=== PATIENT | female | born 1960 | race African-American/Black ===

== ENCOUNTER 2017-07-19 14:56 | Emergency (ER) | payer MEDICARE, MEDICAID | END 2017-07-19 14:57 | disposition home or self-care (01) | LOC: ERS 14:56 | DX: K08.89 Other specified disorders of teeth and supporting structures (principal); E78.5 Hyperlipidemia, unspecified; I10 Essential (primary) hypertension; J45.909 Unspecified asthma, uncomplicated; F32.9 Major depressive disorder, single episode, unspecified | CPT/HCPCS: 99282 ==

== ENCOUNTER 2018-08-23 14:03 | Outpatient (CLI) | payer MEDICARE, MEDICAID | END 2018-08-23 14:04 | disposition home or self-care (01) | LOC: BICMAMMO 14:03 | PROVIDERS: ATTEND Family Medicine | DX: Z12.31 Encounter for screening mammogram for malignant neoplasm of breast (principal); R92.1 Mammographic calcification found on diagnostic imaging of breast | CPT/HCPCS: 77063; 77067 ==

== ENCOUNTER 2019-02-28 13:49 | Outpatient (CLI) | payer MEDICARE, MEDICAID ==
--- NOTE | 2019-02-28 16:16 | MRI ---
MRI lumbar spine without contrast: 02/28/2019 HISTORY: Chronic back pain, bilateral radiculopathy COMPARISON: 06/20/2015 Technique: Multiplanar multisequence MR imaging of the lumbar spine without contrast FINDINGS: On the basis of 5 lumbar type vertebral bodies, the conus medullaris terminates at L1-2.. T12-L1: Mild bilateral facet hypertrophy and disc space narrowing. No significant central canal or ne ural foraminal stenosis. L1-2: Mild bilateral facet hypertrophy. Disc desiccation noted. Mild left neural foraminal stenosis. L2-3: Disc space narrowing and disc desiccation. Mild bilateral facet hypertrophy. Mild bilateral hui ral foraminal stenosis. L3-4: There is disc space narrowing and disc desiccation with mild disc bulge. No significant central canal stenosis. Bilateral facet hypertrophy with mild bilateral neural foraminal stenosis, left greater than right. L4-5: There is disc space narrowing and disc desiccation. There is a small left paracentral disc prot rusion with moderate left lateral recess stenosis this is less conspicuous than on the prior examination. There is mild bilateral facet hypertrophy and mild bilateral neural foraminal stenosis. L5-S1: Bilateral facet hypertrophy, left greater than right, with moderate/severe bilateral neural fo raminal stenosis, slightly worsened when compared to the prior exam. There is disc space narrowing and disc desiccation. There is a disc protrusion in the left paracentral region with significant stab le left lateral recess stenosis. Visualized retroperitoneal structures demonstrate no acute findings. The sagittal STIR imaging demonstrates no focal area of osseous marrow edema. Impression: Multilevel lumbar spine degenerative change as described above. Transcribed Date/Time: 02/28/2019 4:26 PM
== END 2019-02-28 13:50 | disposition home or self-care (01) ==
LOC: BICMRI 13:49
PROVIDERS: ATTEND Family Medicine
DX: M54.5 Low back pain (principal); G89.29 Other chronic pain; M47.816 Spondylosis without myelopathy or radiculopathy, lumbar region
CPT/HCPCS: 72148

== ENCOUNTER 2019-07-04 14:07 | Emergency (ER) | payer MEDICARE, MEDICAID ==
[2019-07-04] MEDS ORDERED: Ibuprofen 200 MG TAB ONE (15:50)
[2019-07-04] MEDS ORDERED: Cyclobenzaprine 10 MG TAB ONE (16:03)
--- NOTE | 2019-07-04 16:49 | RAD ---
EXAM: XR Knee Lt 4 View STANDARD PROVIDED CLINICAL HISTORY: Pain FINDINGS: There is no evidence for fracture or other acute osseous abnormality. Alignment appears anatomic. Mimi nt spaces appear preserved. IMPRESSION: No evidence for an acute osseous abnormality. If there is persistent clinical concern, conservative m anagement and follow-up imaging advised.
--- NOTE | 2019-07-04 16:50 | RAD ---
EXAM: XR Knee Rt 4 View STANDARD PROVIDED CLINICAL HISTORY: Pain FINDINGS: There is no evidence for fracture or other acute osseous abnormality. Alignment appears anatomic. Mimi nt spaces appear preserved. Low-grade chondroid lesion is demonstrated involving the central proximal tibial metaphyseal region. Remote appearing ununited fibular styloid fracture. IMPRESSION: No evidence for an acute osseous abnormality. If there is persistent clinical concern, conservative m anagement and follow-up imaging advised.
--- NOTE | 2019-07-04 16:52 | RAD ---
EXAM: XR Elbow Lt 4 View STANDARD PROVIDED CLINICAL HISTORY: Pain FINDINGS: Linear lucency overlies the capitellum on the frontal and oblique view, possibly artifactual. Alignme nt appears anatomic. Joint spaces appear preserved. No evidence for elbow joint capsular distention. IMPRESSION: Possibly artifactual linear lucency overlies the capitellum versus nondisplaced fracture. Consider CT as indicated.
== END 2019-07-04 17:45 | disposition home or self-care (01) ==
LOC: ERS 14:07
DX: S39.012A Strain of muscle, fascia and tendon of lower back, initial encounter (principal); S80.02XA Contusion of left knee, initial encounter; S80.01XA Contusion of right knee, initial encounter; S50.02XA Contusion of left elbow, initial encounter; E78.5 Hyperlipidemia, unspecified; I10 Essential (primary) hypertension; J45.909 Unspecified asthma, uncomplicated; F32.9 Major depressive disorder, single episode, unspecified; W18.30XA Fall on same level, unspecified, initial encounter
CPT/HCPCS: 29105; 94640; J7620

== ENCOUNTER 2020-07-22 11:52 | Emergency (ER) | payer MEDICARE, MEDICAID ==
[2020-07-22 12:26] LABS: #Eosinphils 0.2 thou/uL (0.0-0.7); #Lymphocytes 2.2 thou/uL (1.20-3.40); #Monocytes 0.3 thou/uL (0.11-0.59); #Neutrophils 3.7 thou/uL (1.40-6.50); %Basophils 0.7 % (0.0-1.0); %Eosinophils 3.3 % (0.0-10.0); %Lymphocytes 33.4 % (21.0-51.0); %Monocytes 5.1 % (0.0-10.0); %Neutrophils 57.6 % (42.0-75.0); Hemoglobin 9.7 g/dL (12.0-16.0); Mean Corpuscular HGB CONC 30.9 g/dL (32.0-36.0); Mean Corpuscular Hemoglobin 23.2 pg (27.0-31.0); Mean Corpuscular Volume 75.1 fL (78.0-98.0); Mean Platelet Volume 10.3 fL (7.4-10.4); Platelet Count 272 thou/uL (130-400); RBC Distribution Width 17.7 % (11.5-14.5); Red Blood Cell (RBC) Count 4.16 mill/uL (4.20-5.40); White Blood Cell (WBC) Count 6.4 thou/uL (4.8-10.8)
[2020-07-22 12:48] LABS: ALT (SGPT) 15 U/L (8-55); AST (SGOT) 14 U/L (5-34); Albumin 3.9 g/dL (3.5-5.0); Alkaline Phosphatase 93 U/L (40-110); Anion Gap 14 mmol/L (10-20); BUN (Urea Nitrogen) 14 mg/dL (9.8-20.1); Bilirubin, Total 0.4 mg/dL (0.2-1.2); CK (CPK) 110 U/L (29-168); Calc. Creatinine Clearance 0 mL/min (70-130); Calcium 9.2 mg/dL (7.8-10.44); Carbon Dioxide 27 mmol/L (22-29); Chloride 103 mmol/L (98-107); Estimated GFR-MDRD 70; Globulin 3.4 g/dL (2.4-3.5); Glucose 104 mg/dL (70-105); Lipase 13 U/L (8-78); Potassium 3.8 mmol/L (3.5-5.1); Protein, Total 7.3 g/dL (6.0-8.3); Sodium 140 mmol/L (136-145)
[2020-07-22] MEDS ORDERED: HYDROcodone/Acetaminophen 5/325 mg Tablet ONE (14:32)
--- NOTE | 2020-07-22 15:17 | ULT ---
EXAM: Right lower extremity venous Doppler HISTORY: Left leg swelling/dyspnea on exertion. FINDINGS: Grayscale, color-flow, Doppler evaluation, spectral analysis of the right lower extremity venous stru ctures is performed with 2-D imaging. The right common femoral, superficial femoral, popliteal, posterior tibial, proximal greater saphenous and profunda femoral veins are imaged. There is normal luminal compressibility, flow, and augmentation in the visualized deep venous structu res of the right lower extremity. There is subcutaneous edema involving the right lower extremity. IMPRESSION: 1. No evidence of a deep vein thrombosis in the visualized deep venous structures right lower extremi ty. 2. Right lower extremity edema.
[2020-07-22] MEDS ORDERED: Furosemide 40 MG TAB ONE (16:14)
--- NOTE | 2020-07-23 07:27 | RAD ---
EXAM: Single view of the chest HISTORY: Leg swelling and dyspnea COMPARISON: 06/24/2012 FINDINGS: Single view of the chest shows an enlarged but stable cardiomediastinal silhouette. There i s no evidence of consolidation, mass, or pleural effusion. Degenerative changes are seen in the spine. IMPRESSION: No evidence of acute cardiopulmonary disease
== END 2020-07-22 16:25 | disposition home or self-care (01) ==
LOC: ERS 11:52
DX: R60.0 Localized edema (principal); M79.604 Pain in right leg; M79.605 Pain in left leg; I10 Essential (primary) hypertension; E78.5 Hyperlipidemia, unspecified; J45.909 Unspecified asthma, uncomplicated; F32.9 Major depressive disorder, single episode, unspecified; Z87.891 Personal history of nicotine dependence; Z79.899 Other long term (current) drug therapy; Z79.84 Long term (current) use of oral hypoglycemic drugs; Z79.82 Long term (current) use of aspirin
CPT/HCPCS: 36415; 71045; 80053; 82550; 83690; 83880; 84484; 85025; 93005

== ENCOUNTER 2020-07-30 20:10 | Emergency (ER) | payer MEDICARE, MEDICAID ==
[2020-07-30] MEDS ORDERED: Ketorolac Tromethamine 30 MG/ML VIAL ONE (20:39)
[2020-07-30] MEDS ORDERED: traMADol HCl 50 MG TAB ONE (20:39)
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
== END 2020-07-30 22:14 | disposition home or self-care (01) ==
LOC: ERS 20:10
DX: S16.1XXA Strain of muscle, fascia and tendon at neck level, initial encounter (principal); S46.912A Strain of unspecified muscle, fascia and tendon at shoulder and upper arm level, left arm, initial encounter; M25.562 Pain in left knee; E78.5 Hyperlipidemia, unspecified; I10 Essential (primary) hypertension; J45.909 Unspecified asthma, uncomplicated; F32.9 Major depressive disorder, single episode, unspecified; Z87.891 Personal history of nicotine dependence; Z79.84 Long term (current) use of oral hypoglycemic drugs; Z79.51 Long term (current) use of inhaled steroids; Z79.899 Other long term (current) drug therapy; V43.62XA Car passenger injured in collision with other type car in traffic accident, initial encounter
CPT/HCPCS: 72125; 96372; J1885

== ENCOUNTER 2020-10-08 14:20 | Emergency (ER) | payer MEDICARE, MEDICAID ==
[2020-10-08 15:15] LABS: #Basophils 0.1 thou/uL (0.0-0.2); #Lymphocytes 1.7 thou/uL (1.20-3.40); #Monocytes 0.4 thou/uL (0.11-0.59); #Neutrophils 2.1 thou/uL (1.40-6.50); %Basophils 1.7 % (0.0-1.0); %Eosinophils 0.5 % (0.0-10.0); %Lymphocytes 40.3 % (21.0-51.0); %Monocytes 8.9 % (0.0-10.0); %Neutrophils 48.6 % (42.0-75.0)
[2020-10-08 15:16] LABS: Hemoglobin 8.8 g/dL (12.0-16.0); Mean Corpuscular HGB CONC 30.7 g/dL (32.0-36.0); Mean Corpuscular Hemoglobin 22.1 pg (27.0-31.0); Mean Corpuscular Volume 72.2 fL (78.0-98.0); Mean Platelet Volume 11.2 fL (7.4-10.4); Platelet Count 235 thou/uL (130-400); RBC Distribution Width 18.8 % (11.5-14.5); Red Blood Cell (RBC) Count 3.99 mill/uL (4.20-5.40); White Blood Cell (WBC) Count 4.3 thou/uL (4.8-10.8)
[2020-10-08 15:34] LABS: ALT (SGPT) 15 U/L (8-55); AST (SGOT) 20 U/L (5-34); Alkaline Phosphatase 105 U/L (40-110); Anion Gap 13 mmol/L (10-20); BUN (Urea Nitrogen) 18 mg/dL (9.8-20.1); Bilirubin, Total 0.2 mg/dL (0.2-1.2); CK (CPK) 113 U/L (29-168); Calc. Creatinine Clearance 0 mL/min (70-130); Carbon Dioxide 30 mmol/L (22-29); Chloride 100 mmol/L (98-107); Glucose 135 mg/dL (70-105); Potassium 3.9 mmol/L (3.5-5.1); Sodium 139 mmol/L (136-145)
[2020-10-08 15:36] LABS: Anisocytosis SLIGHT = 6-15 cells (100X) (0-5/hpf); Hypochromia SLIGHT = 6-15 cells (100X) (0-5/hpf); Large Platelets SLIGHT; MDiff Complete? YES; Microcytosis SLIGHT = 6-15 cells (100X) (0-5/hpf); Platelet Morphology Comment Appears Adequate; Polychromasia SLIGHT = 2-3 cells (100X) (0-2/hpf); Stomatocytes SLIGHT = 2-5 cells (100X) (0-1/hpf); Target Cells SLIGHT = 2-5 cells (100X) (0-1/hpf); Tear Drops SLIGHT = 2-5 cells (100X) (0-1/hpf)
--- NOTE | 2020-10-08 15:37 | RAD ---
EXAM: Portable chest PROVIDED CLINICAL HISTORY: Dizziness, cough COMPARISON: 07/22/2020 FINDINGS: Cardiac and mediastinal silhouette is within normal limits. No focal consolidation, pleural fluid or pneumothorax evident. IMPRESSION: No evidence for an acute cardiopulmonary process.
[2020-10-08] MEDS ORDERED: Cefepime 2 GM VIAL ONE (16:03)
[2020-10-08] MEDS ORDERED: Vancomycin 1 GM/200 ML BAG ONE (16:03)
== END 2020-10-08 17:50 | disposition home or self-care (01) ==
LOC: ERS 14:20
DX: R55 Syncope and collapse (principal); E78.5 Hyperlipidemia, unspecified; I10 Essential (primary) hypertension; Z87.891 Personal history of nicotine dependence; Z79.899 Other long term (current) drug therapy
CPT/HCPCS: 71045; 80053; 82550; 83605; 84484; 85025; 87040; 93005; 96365; 96367; J0692; J3370

== ENCOUNTER 2021-03-07 14:54 | Outpatient (CLI) | payer MEDICARE ==
[2021-03-07 16:00] LABS: ALT (SGPT) 12 U/L (8-55); AST (SGOT) 12 U/L (5-34); Albumin 4.1 g/dL (3.5-5.0); Alkaline Phosphatase 94 U/L (40-110); Anion Gap 12 mmol/L (10-20); BUN (Urea Nitrogen) 15 mg/dL (9.8-20.1); Bilirubin, Total 0.4 mg/dL (0.2-1.2); Calc. Creatinine Clearance 0 mL/min (70-130); Calcium 9.6 mg/dL (7.8-10.44); Carbon Dioxide 29 mmol/L (22-29); Chloride 102 mmol/L (98-107); Globulin 3.2 g/dL (2.4-3.5); Glucose 101 mg/dL (70-105); Potassium 3.6 mmol/L (3.5-5.1); Protein, Total 7.3 g/dL (6.0-8.3); Sodium 139 mmol/L (136-145)
[2021-03-07 16:16] LABS: #Eosinphils 0.1 10x3/uL (0.0-0.5); #Monocytes 0.4 10x3/uL (0.0-1.1); #Neutrophils 3.5 10x3/uL (1.5-8.4); %Basophils 0.6 % (0.0-2.0); %Eosinophils 1.6 % (0.0-6.0); %Lymphocytes 40.2 % (18.0-47.0); %Neutrophils 51.5 % (40.0-75.0); Hemoglobin 7.6 g/dL (12.0-15.5); Mean Corpuscular HGB CONC 28.3 g/dL (32.0-36.0); Mean Corpuscular Hemoglobin 18.5 pg (27.0-33.0); Mean Corpuscular Volume 65.5 fl (81.6-98.3); Mean Platelet Volume 10.8 fl (7.4-10.4); Platelet Count 339 10x3/uL (150-450); RBC Distribution Width 20.8 % (11.5-14.5); Red Blood Cell (RBC) Count 4.11 10x6/uL (3.90-5.03); White Blood Cell (WBC) Count 6.7 10x3/uL (3.5-10.5)
[2021-03-08 00:20] LABS: SARS-CoV-2 PCR by NAA Not Detected (NotDetected)
== END 2021-03-07 14:55 | disposition home or self-care (01) ==
LOC: LABBT 14:54
PROVIDERS: ATTEND Internal Medicine Cardiovascular Disease
DX: Z01.812 Encounter for preprocedural laboratory examination (principal); Z20.822 Contact with and (suspected) exposure to COVID-19
CPT/HCPCS: 80053; 85025; U0003; U0005

== ENCOUNTER 2021-03-19 06:51 | Inpatient (IN) | payer MEDICARE, MEDICAID ==
[2021-03-19] MEDS ORDERED: Iopamidol 370 76% 100 ML VIAL ONE (08:51)
[2021-03-19 09:01] LABS: #Basophils 0.1 thou/uL (0.0-0.2); #Eosinphils 0.2 thou/uL (0.0-0.7); #Lymphocytes 3.9 thou/uL (1.20-3.40); #Monocytes 0.4 thou/uL (0.11-0.59); #Neutrophils 6.1 thou/uL (1.40-6.50); %Basophils 0.9 % (0.0-1.0); %Eosinophils 1.5 % (0.0-10.0); %Lymphocytes 36.4 % (21.0-51.0); %Monocytes 4.1 % (0.0-10.0); Hemoglobin 8.2 g/dL (12.0-16.0); Mean Corpuscular HGB CONC 29.2 g/dL (32.0-36.0); Mean Corpuscular Hemoglobin 18.8 pg (27.0-31.0); Mean Corpuscular Volume 64.3 fL (78.0-98.0); Mean Platelet Volume 6.6 fL (7.4-10.4); Platelet Count 352 thou/uL (130-400); RBC Distribution Width 20.8 % (11.5-14.5); Red Blood Cell (RBC) Count 4.34 mill/uL (4.20-5.40); White Blood Cell (WBC) Count 10.6 thou/uL (4.8-10.8)
[2021-03-19] MEDS ORDERED: Lidocaine 1% (PF) 30 ML VIAL ONE (09:30)
[2021-03-19] MEDS ORDERED: Fentanyl 100 MCG/2 ML VIAL ONE (09:53)
[2021-03-19] MEDS ORDERED: Midazolam HCl 2 mg/2 ml Vial ONE (09:53)
[2021-03-19] MEDS ORDERED: Metoprolol Tartrate 5 MG/5 ML VIAL ONE (10:09)
[2021-03-19] MEDS ORDERED: Nitroglycerin 100MG/250ML BOT 250 ML ONE (10:15)
[2021-03-19 10:23] LABS: Hypochromia MODERATE=16-30 cells (100X) (0-5/hpf); MDiff Complete? YES; Microcytosis MODERATE=15-30 cells (100X) (0-5/hpf); Ovalocytes SLIGHT = 2-5 cells (100X) (0-1/hpf); Platelet Morphology Comment Appears Adequate; Polychromasia SLIGHT = 2-3 cells (100X) (0-2/hpf); Reflex for Review?? YES; Schistocytes SLIGHT = 2-5 cells (100X) (0-1/hpf)
[2021-03-19] MEDS ORDERED: Nitroglycerin 2% Ointment 1 INCH/1 GM Packet ONE (10:54)
[2021-03-19] MEDS: Nitroglycerin 2% Ointment 1 INCH/1 GM Packet TOP SCH ×2 (10:55→23:54)
[2021-03-19] MEDS ORDERED: Diazepam 5 MG TAB PO PRN (11:52)
[2021-03-19] MEDS ORDERED: Communication Order-Pharmacy FS ONE (11:52)
[2021-03-19] MEDS ORDERED: Acetaminophen/Codeine 30-300mg Tablet PO PRN ×2 (12:00)
[2021-03-19] MEDS ORDERED: Nitroglycerin 0.4 MG TAB (25 Tab Bottle) SL PRN (12:00)
[2021-03-19] MEDS ORDERED: Albuterol Sulfate 2.5 mg/3 ml Neb NEB PRN (12:49)
[2021-03-19] MEDS ORDERED: Cyclobenzaprine 10 MG TAB PO PRN (12:50)
[2021-03-19 13:25] LABS: Hemoglobin A1c 5.7 % (4.0-6.0)
[2021-03-19] MEDS ORDERED: traMADol HCl 50 MG TAB ONE (13:41)
[2021-03-19] MEDS: traMADol HCl 50 MG TAB PO PRN (13:44)
[2021-03-19] MEDS: Gabapentin 300 MG CAP PO SCH ×2 (15:30→21:29)
[2021-03-19] MEDS ORDERED: Cyclobenzaprine 10 MG TAB ONE (18:52)
[2021-03-19] MEDS: Mometasone 200 MCG/Formoterol 5 MCG 120 PUFF INHALER INH SCH (19:32)
[2021-03-19] MEDS: Mometasone Furoate 30 PUFF 220 MCG INH SCH (19:34)
[2021-03-19] MEDS ORDERED: Acetaminophen/Codeine 30-300mg Tablet ONE (21:23)
[2021-03-19] MEDS ORDERED: Gabapentin 300 MG CAP ONE (21:26)
[2021-03-19] MEDS: Sodium Chloride 0.9% 1,000 ML IV SCH (23:02)
[2021-03-19 23:38] VITALS: BMI 39.9
[2021-03-19] MEDS: Atorvastatin Calcium 20 MG TAB PO SCH (23:54)
[2021-03-20] MEDS: traMADol HCl 50 MG TAB PO PRN ×3 (00:01→20:49)
[2021-03-20] MEDS: Ipratropium Bromide 0.03% Nasal Inhaler 30 ml Bottle EA NARE SCH ×2 (00:15→23:44)
[2021-03-20] MEDS: Nitroglycerin 2% Ointment 1 INCH/1 GM Packet TOP SCH ×3 (05:37→20:50)
[2021-03-20] MEDS: Sodium Chloride 0.9% 1,000 ML IV SCH (07:04)
[2021-03-20] MEDS ORDERED: metFORMIN 500 MG TAB PO SCH (08:00)
[2021-03-20] MEDS: Mometasone 200 MCG/Formoterol 5 MCG 120 PUFF INHALER INH SCH ×2 (08:14→19:13)
[2021-03-20] MEDS ORDERED: Multivit, Therapeutic 1 TAB PO SCH (09:00)
[2021-03-20] MEDS ORDERED: Azelastine 137 MCG/Spray 30 ML NS SCH (09:00)
[2021-03-20] MEDS ORDERED: Aspirin 81 mg Enteric Coated Tablet PO SCH (09:00)
[2021-03-20] MEDS ORDERED: Calcium Carbonate 600 MG + Vit D TAB PO SCH (09:00)
[2021-03-20] MEDS ORDERED: Fluconazole 100 MG TAB PO SCH (09:00)
[2021-03-20] MEDS ORDERED: Potassium Chloride 10 MEQ TAB PO SCH (09:00)
[2021-03-20] MEDS ORDERED: Estradiol 1 MG TAB PO SCH (09:00)
[2021-03-20] MEDS ORDERED: Ascorbic Acid 500 mg Chewable Tablet PO SCH (09:00)
[2021-03-20] MEDS ORDERED: Loratadine/Pseudoephedrine 10/240 mg Tablet PO SCH (09:00)
[2021-03-20] MEDS ORDERED: DULoxetine 60 MG CAP PO SCH (09:00)
[2021-03-20] MEDS: Gabapentin 300 MG CAP PO SCH ×3 (09:39→20:50)
[2021-03-20] MEDS: Atorvastatin Calcium 20 MG TAB PO SCH (20:50)
[2021-03-20] MEDS ORDERED: Nitroglycerin 2% Ointment 1 INCH/1 GM Packet ONE (21:42)
[2021-03-21] MEDS ORDERED: Clindamycin/D5W 900 mg/50 ml Premix Bag ONE (06:12)
[2021-03-21] MEDS ORDERED: Vancomycin 1 GM/200 ML BAG ONE (06:12)
[2021-03-21] MEDS ORDERED: CABG-Vancomycin 1 GM in Premix Bag 1 BAG IVPB SCH (06:30)
[2021-03-21] MEDS ORDERED: Dexamethasone 4 mg/ml Vial ONE (06:33)
[2021-03-21] MEDS ORDERED: Albumin 5% 500 ML ONE (06:33)
[2021-03-21] MEDS ORDERED: Bupivacaine PF 0.5% 30 ML VIAL ONE (06:33)
[2021-03-21] MEDS ORDERED: EPINEPHrine 1 MG/ML AMP ONE (06:33)
[2021-03-21] MEDS: Nitroglycerin 2% Ointment 1 INCH/1 GM Packet TOP SCH (06:35)
[2021-03-21] MEDS ORDERED: Midazolam HCl 5 mg/5 ml Vial ONE (06:52)
[2021-03-21] MEDS ORDERED: Fentanyl 250 MCG/5 ML VIAL ONE (06:52)
[2021-03-21] MEDS ORDERED: Thrombin 5000 UNITS/5 ML VIAL ONE (07:07)
[2021-03-21] MEDS ORDERED: PHENYLEPHRINE-NS 100 MCG/ML 10 ML SYRINGE ONE ×2 (07:07→09:31)
[2021-03-21] MEDS ORDERED: PROPOFOL 200 MG/20 ML VIAL ONE (07:07)
[2021-03-21] MEDS ORDERED: Potassium Chloride 60 MEQ/30 ML VIAL ONE (07:07)
[2021-03-21] MEDS ORDERED: Cardioplegic Soln 1,000 ML BAG ONE (07:07)
[2021-03-21] MEDS ORDERED: Aminocaproic Acid 5 GM/20 ML VIAL ONE (07:07)
[2021-03-21] MEDS ORDERED: Heparin 5,000 UNITS/ML VIAL ONE (07:07)
[2021-03-21] MEDS ORDERED: Heparin 30,000 units/30 ml VIAL ONE (07:07)
[2021-03-21] MEDS ORDERED: Calcium Chloride 1 GM/10 ML Abboject SYRINGE ONE (07:07)
[2021-03-21] MEDS ORDERED: Rocuronium Bromide 10 MG/ML (10ML VIAL) ONE (07:07)
[2021-03-21] MEDS ORDERED: Papaverine 60 MG/2 ML VIAL ONE (07:07)
[2021-03-21] MEDS ORDERED: Ondansetron PF 4 MG/2 ML Vial ONE (07:07)
[2021-03-21] MEDS ORDERED: Protamine Sulfate 250 MG/25 ML VIAL ONE (07:07)
[2021-03-21] MEDS ORDERED: Mannitol 12.5 GM/50 ML ONE (07:07)
[2021-03-21] MEDS ORDERED: Lidocaine 2% PF 100 mg/5 ml Syringe ONE (07:07)
[2021-03-21] MEDS ORDERED: Magnesium Sulfate 1 GM/2 ML VIAL ONE (07:07)
[2021-03-21] MEDS ORDERED: Sodium Bicarb 50 MEQ/50 ML Abboject 8.4% SYRINGE ONE (07:07)
[2021-03-21] MEDS ORDERED: Heparin 10,000 UNITS/1 ML VIAL 30,000 UNITS in Sodium Chloride 0.9% 1,000 ML FS SCH (07:15)
[2021-03-21] MEDS ORDERED: CABG-Clindamycin/D5W 900 MG in Premix Bag 1 BAG IVPB SCH (07:30)
[2021-03-21] MEDS ORDERED: Sodium Chloride 0.9% 10 ML ONE (07:31)
[2021-03-21] MEDS ORDERED: Rocuronium Bromide 50 MG/5 ML VIAL ONE (10:35)
[2021-03-21] MEDS: Mometasone 200 MCG/Formoterol 5 MCG 120 PUFF INHALER INH SCH (10:40)
[2021-03-21] MEDS ORDERED: Mag-Al 1200 mg/1200 mg/30 ML UDCUP PO PRN (11:30)
[2021-03-21] MEDS ORDERED: Post-Op Insulin Drip Protocol IVPB ONE (11:30)
[2021-03-21] MEDS ORDERED: Bisacodyl 5 MG TAB PO PRN (11:30)
[2021-03-21] MEDS ORDERED: Fentanyl 100 MCG/2 ML VIAL SLOW IVP PRN (11:30)
[2021-03-21] MEDS ORDERED: Magnesium 2 GM/50 ML 2 GM in Premix Bag 1 BAG IVPB SCH (11:30)
[2021-03-21] MEDS ORDERED: Promethazine HCl 25 MG/ML VIAL IM PRN (11:30)
[2021-03-21] MEDS ORDERED: Potassium Chloride 20 MEQ/100 ML PREMIX BAG IVPB PRN (11:30)
[2021-03-21] MEDS ORDERED: Guaifenesin DM 100-10/5 ML UDCUP PO PRN (11:30)
[2021-03-21] MEDS ORDERED: Ondansetron PF 4 MG/2 ML Vial IVP PRN (11:30)
[2021-03-21] MEDS ORDERED: Norepinephrine 8 MG/0.9% NS 250 ML IVPB PRN (11:30)
[2021-03-21] MEDS ORDERED: Hetastarch 6% 500 ML 500 ML IVPB PRN (11:30)
[2021-03-21] MEDS ORDERED: D5 1/2 NS w/20 mEq KCL 1,000 ML IV SCH (11:30)
[2021-03-21] MEDS ORDERED: Bisacodyl 10 MG SUPP PR PRN (11:30)
[2021-03-21] MEDS ORDERED: Nitroglycerin 50 MG/250 ML BOT 250 ML IVPB PRN (11:30)
[2021-03-21] MEDS ORDERED: niCARdipine 25 MG in Sodium Chloride 0.9% 250 ML 250 ML IVPB PRN (11:30)
[2021-03-21 11:55] LABS: Hemoglobin 9.1 g/dL (12.0-16.0); Mean Corpuscular HGB CONC 31.7 g/dL (32.0-36.0); Mean Corpuscular Hemoglobin 22.5 pg (27.0-31.0); Mean Corpuscular Volume 71.1 fL (78.0-98.0); Mean Platelet Volume 7.2 fL (7.4-10.4); Platelet Count 182 thou/uL (130-400); RBC Distribution Width 23.3 % (11.5-14.5); Red Blood Cell (RBC) Count 4.02 mill/uL (4.20-5.40); White Blood Cell (WBC) Count 21.4 thou/uL (4.8-10.8)
[2021-03-21] MEDS: Ketorolac Tromethamine 30 MG/ML VIAL IVP SCH ×3 (11:59→23:19)
[2021-03-21] MEDS ORDERED: HUMULIN R 100 UNITS in Sodium Chloride 0.9% 100 ML IVPB SCH (12:00)
[2021-03-21] MEDS ORDERED: Insulin Regular 300 UNITS/3 ML VIAL SC PRN (12:00)
[2021-03-21] MEDS ORDERED: Dextrose 50% Abboject 50 ML SYRINGE SLOW IVP PRN (12:00)
[2021-03-21] MEDS ORDERED: Lantus 1000 UNITS/10 ML VIAL SC PRN (12:00)
[2021-03-21] MEDS ORDERED: Clindamycin/D5W 900 MG in Premix Bag 1 BAG IVPB SCH (12:00)
[2021-03-21] MEDS ORDERED: Dextrose 5% in Water 1,000 ML IV PRN (12:00)
[2021-03-21 12:12] LABS: Anion Gap 11 mmol/L (10-20); BUN (Urea Nitrogen) 8 mg/dL (9.8-20.1); Calc. Creatinine Clearance 146 mL/min (70-130); Calcium 8.8 mg/dL (7.8-10.44); Carbon Dioxide 25 mmol/L (22-29); Chloride 105 mmol/L (98-107); Glucose 148 mg/dL (70-105); INR-International Normal Ratio 1.3; Potassium 4.2 mmol/L (3.5-5.1); Prothrombin Time 16.1 sec (12.0-14.7); Sodium 137 mmol/L (136-145)
[2021-03-21 12:13] LABS: PTT 43.5 sec (22.9-36.1)
[2021-03-21] MEDS: Ipratropium Bromide 0.03% Nasal Inhaler 30 ml Bottle EA NARE SCH (12:16)
[2021-03-21] MEDS: Mometasone Furoate 30 PUFF 220 MCG INH SCH (12:16)
[2021-03-21 12:20] LABS: Anisocytosis SLIGHT = 6-15 cells (100X) (0-5/hpf); Band 29 % (5-11); Eosinophils 1 % (0-10); Hypochromia MODERATE=16-30 cells (100X) (0-5/hpf); Lymphocytes 14 % (21-51); MDiff Complete? YES; Microcytosis SLIGHT = 6-15 cells (100X) (0-5/hpf); Neutrophil 56 % (42-75); Platelet Morphology Comment Appears Adequate; Polychromasia SLIGHT = 2-3 cells (100X) (0-2/hpf); Target Cells SLIGHT = 2-5 cells (100X) (0-1/hpf); Tear Drops SLIGHT = 2-5 cells (100X) (0-1/hpf)
[2021-03-21 12:23] LABS: Actual Bicarbonate (HCO3a) 25.4 mEq/L (22-28); Base Excess (BEa) 1.1 mEq/L (-2.0 to +3.0); CO2 Tension 39.1 mmHg (35.0-45.0); Calcium, Ionized (arterial) 1.23 mmol/L (1.12-1.30); Carboxyhemoglobin (COHb) 0.5 gm% (0.0-3.0); O2 Tension (PaO2), arterial 102.5 mmHg (> 80.0); pH, Arterial 7.43 (7.35-7.45)
[2021-03-21 12:27] LABS: ALV-art Gradient 205.125 mmHg (0-20); Puncture Site Arterial Line
[2021-03-21] MEDS: Clindamycin/D5W 900 MG in Premix Bag 1 BAG IVPB SCH ×3 (12:34→23:19)
[2021-03-21] MEDS: Fentanyl 100 MCG/2 ML VIAL SLOW IVP PRN ×5 (12:35→23:19)
[2021-03-21] MEDS: Vancomycin 1.5 GRAM/300 ML BAG 1.5 GM in Premix Bag 1 BAG IVPB SCH (16:42)
[2021-03-21 17:14] LABS: Hemoglobin 10.3 g/dL (12.0-16.0)
[2021-03-21 17:32] LABS: Potassium 4.7 mmol/L (3.5-5.1)
[2021-03-21] MEDS: Famotidine/PF 20 mg/2ml Vial SLOW IVP SCH (20:43)
[2021-03-22] MEDS: Fentanyl 100 MCG/2 ML VIAL SLOW IVP PRN ×2 (02:37→06:22)
[2021-03-22 04:26] LABS: Hemoglobin 9.7 g/dL (12.0-16.0); Mean Corpuscular HGB CONC 31.5 g/dL (32.0-36.0); Mean Corpuscular Hemoglobin 22.5 pg (27.0-31.0); Mean Corpuscular Volume 71.6 fL (78.0-98.0); Mean Platelet Volume 6.2 fL (7.4-10.4); Platelet Count 225 thou/uL (130-400); RBC Distribution Width 23.4 % (11.5-14.5); Red Blood Cell (RBC) Count 4.29 mill/uL (4.20-5.40); White Blood Cell (WBC) Count 13.3 thou/uL (4.8-10.8)
[2021-03-22 04:40] LABS: Anion Gap 9 mmol/L (10-20); BUN (Urea Nitrogen) 9 mg/dL (9.8-20.1); Calc. Creatinine Clearance 131 mL/min (70-130); Calcium 8.5 mg/dL (7.8-10.44); Carbon Dioxide 28 mmol/L (22-29); Chloride 105 mmol/L (98-107); Glucose 135 mg/dL (70-105); Potassium 4.8 mmol/L (3.5-5.1); Sodium 137 mmol/L (136-145)
[2021-03-22 05:57] LABS: #Lymphocytes 1.6 thou/uL (1.20-3.40); #Monocytes 0.8 thou/uL (0.11-0.59); %Eosinophils 0.1 % (0.0-10.0); %Lymphocytes 11.6 % (21.0-51.0); %Monocytes 5.6 % (0.0-10.0); %Neutrophils 82.6 % (42.0-75.0); Anisocytosis MODERATE=16-30 cells (100X) (0-5/hpf); Hypochromia MODERATE=16-30 cells (100X) (0-5/hpf); MDiff Complete? YES; Platelet Morphology Comment Appears Adequate
[2021-03-22] MEDS: Clindamycin/D5W 900 MG in Premix Bag 1 BAG IVPB SCH (06:19)
[2021-03-22] MEDS: Ketorolac Tromethamine 30 MG/ML VIAL IVP SCH ×4 (06:20→23:01)
[2021-03-22] MEDS: Vancomycin 1.5 GRAM/300 ML BAG 1.5 GM in Premix Bag 1 BAG IVPB SCH (06:21)
[2021-03-22] MEDS: Acetaminophen 325 MG TAB PO PRN (06:21)
[2021-03-22] MEDS: Famotidine/PF 20 mg/2ml Vial SLOW IVP SCH (07:33)
[2021-03-22] MEDS: Aspirin 325 MG TAB PO SCH (07:34)
[2021-03-22] MEDS: Magnesium 2 GM/50 ML 2 GM in Premix Bag 1 BAG IVPB SCH (07:34)
[2021-03-22] MEDS ORDERED: Dextrose 50% Abboject 50 ML SYRINGE SLOW IVP PRN (08:04)
[2021-03-22] MEDS ORDERED: Dextrose 5% in Water 1,000 ML IV PRN (08:04)
[2021-03-22] MEDS ORDERED: HumaLOG 300 UNITS/3 ML VIAL SC PRN (08:04)
[2021-03-22] MEDS: traMADol HCl 50 MG TAB PO PRN ×2 (10:26→18:22)
[2021-03-22] MEDS: Atorvastatin Calcium 40 MG TAB PO SCH (20:10)
[2021-03-23] MEDS: Ketorolac Tromethamine 30 MG/ML VIAL IVP SCH ×4 (05:38→23:01)
[2021-03-23] MEDS ORDERED: Non-Formulary Item 1 EACH (Albuterol Sulfate [Proair Hfa] 8.5 GM Hfa.Aer.Ad) INH PRN (09:40)
[2021-03-23] MEDS: Magnesium 2 GM/50 ML 2 GM in Premix Bag 1 BAG IVPB SCH (09:43)
[2021-03-23] MEDS: traMADol HCl 50 MG TAB PO PRN (09:44)
[2021-03-23] MEDS: Aspirin 325 MG TAB PO SCH (09:44)
[2021-03-23] MEDS ORDERED: Albuterol 200 PUFF (6.7GM INHALER) INH PRN (09:48)
[2021-03-23] MEDS ORDERED: Guaifenesin DM 100-10/5 ML UDCUP PO PRN (10:37)
[2021-03-23] MEDS ORDERED: Nitroglycerin 0.4 MG TAB (25 Tab Bottle) SL PRN (10:37)
[2021-03-23] MEDS ORDERED: diphenhydrAMINE 25 MG CAP PO PRN (10:37)
[2021-03-23] MEDS ORDERED: Zolpidem Tartrate 5 MG TAB PO PRN (10:37)
[2021-03-23] MEDS ORDERED: Bisacodyl 10 MG SUPP PR PRN (10:37)
[2021-03-23] MEDS ORDERED: Mineral Oil ENEMA PR PRN (10:37)
[2021-03-23] MEDS ORDERED: Milk Of Magnesia 30 ML UDCUP PO PRN (10:37)
[2021-03-23] MEDS ORDERED: Mag-Al 1200 mg/1200 mg/30 ML UDCUP PO PRN (10:37)
[2021-03-23] MEDS ORDERED: Bisacodyl 5 MG TAB PO PRN (10:37)
[2021-03-23] MEDS: Acetaminophen 325 MG TAB PO PRN (18:18)
[2021-03-23] MEDS: Mometasone 200 MCG/Formoterol 5 MCG 120 PUFF INHALER INH SCH (18:55)
[2021-03-23] MEDS ORDERED: Non-Formulary Item 1 EACH (Fluticasone/Salmeterol [Wixela 250-50 Inhub] 1 EACH Blst.W.Dev IH SCH (21:00)
[2021-03-23] MEDS ORDERED: Carvedilol 3.125 MG TAB PO SCH (21:00)
[2021-03-23] MEDS ORDERED: Non-Formulary Item 1 EACH (Fluticasone Propionate [Flovent Diskus] 50 MCG Blst.W.Dev) IH SCH (21:00)
[2021-03-23] MEDS: Atorvastatin Calcium 40 MG TAB PO SCH (21:12)
[2021-03-23] MEDS: Carvedilol 6.25 MG TAB PO SCH (21:13)
[2021-03-23] MEDS: Mometasone 100 MCG/PUFF (1 INHALER) INH SCH (22:22)
[2021-03-24] MEDS: Ipratropium Bromide 0.03% Nasal Inhaler 30 ml Bottle EA NARE SCH ×3 (01:53→21:35)
[2021-03-24] MEDS: Ketorolac Tromethamine 30 MG/ML VIAL IVP SCH ×2 (06:17→11:30)
[2021-03-24] MEDS: Mometasone 100 MCG/PUFF (1 INHALER) INH SCH ×2 (07:36→18:31)
[2021-03-24] MEDS: Mometasone 200 MCG/Formoterol 5 MCG 120 PUFF INHALER INH SCH ×2 (07:36→18:29)
[2021-03-24] MEDS: Aspirin 325 mg Enteric Coated Tablet PO SCH (08:11)
[2021-03-24] MEDS: DULoxetine 60 MG CAP PO SCH (08:11)
[2021-03-24] MEDS: Carvedilol 6.25 MG TAB PO SCH ×2 (08:11→21:32)
[2021-03-24] MEDS: Ascorbic Acid 500 mg Chewable Tablet PO SCH (08:11)
[2021-03-24] MEDS: Azelastine 137 MCG/Spray 30 ML NS SCH (08:13)
[2021-03-24] MEDS ORDERED: ASCORBIC ACID 500 MG PO SCH (09:00)
[2021-03-24] MEDS ORDERED: Non-Formulary Item 1 EACH (Azelastine Hcl [Azelastine Hcl 0.15% Nasal Spray] 205.5 MCG/0. EA NARE SCH (09:00)
[2021-03-24] MEDS: traMADol HCl 50 MG TAB PO PRN (15:27)
[2021-03-24] MEDS: Atorvastatin Calcium 40 MG TAB PO SCH (21:34)
[2021-03-25] MEDS: traMADol HCl 50 MG TAB PO PRN ×3 (04:28→16:07)
[2021-03-25] MEDS: Mometasone 100 MCG/PUFF (1 INHALER) INH SCH ×2 (07:09→20:39)
[2021-03-25] MEDS: Mometasone 200 MCG/Formoterol 5 MCG 120 PUFF INHALER INH SCH ×2 (07:09→20:40)
[2021-03-25] MEDS: DULoxetine 60 MG CAP PO SCH (08:59)
[2021-03-25] MEDS: Ascorbic Acid 500 mg Chewable Tablet PO SCH (08:59)
[2021-03-25] MEDS: Aspirin 325 mg Enteric Coated Tablet PO SCH (08:59)
[2021-03-25] MEDS: Azelastine 137 MCG/Spray 30 ML NS SCH (09:00)
[2021-03-25] MEDS: Ipratropium Bromide 0.03% Nasal Inhaler 30 ml Bottle EA NARE SCH ×2 (09:00→20:48)
[2021-03-25] MEDS: Carvedilol 6.25 MG TAB PO SCH ×2 (09:00→20:47)
[2021-03-25] MEDS: Atorvastatin Calcium 40 MG TAB PO SCH (20:48)
[2021-03-26] MEDS: Mometasone 100 MCG/PUFF (1 INHALER) INH SCH (07:41)
[2021-03-26] MEDS: Mometasone 200 MCG/Formoterol 5 MCG 120 PUFF INHALER INH SCH (07:42)
[2021-03-26] MEDS: Ipratropium Bromide 0.03% Nasal Inhaler 30 ml Bottle EA NARE SCH (09:00)
[2021-03-26] MEDS: DULoxetine 60 MG CAP PO SCH (09:04)
[2021-03-26] MEDS: Carvedilol 6.25 MG TAB PO SCH (09:04)
[2021-03-26] MEDS: Ascorbic Acid 500 mg Chewable Tablet PO SCH (09:05)
[2021-03-26] MEDS: Aspirin 325 mg Enteric Coated Tablet PO SCH (09:05)
[2021-03-26] MEDS: Azelastine 137 MCG/Spray 30 ML NS SCH (09:06)
[2021-03-26 15:33] VITALS: BP 132/64; TEMP 97.8
[2021-03-27 11:20] LABS: Actual Bicarbonate (HCO3a) 25.9 mEq/L (22-28); Analyzer IN Cardio OR; CO2 Tension 48.6 mmHg (35.0-45.0); Calcium, Ionized (arterial) 1.09 mmol/L (1.12-1.30); Hemoglobin (Hb) 7.4 g/dL (12.0-16.0); O2 Tension (PaO2), arterial 395.8 mmHg (> 80.0); Potassium - ABG Lab 4.68 mmol/L (3.70-5.30); pH, Arterial 7.34 (7.35-7.45)
[2021-03-27 11:21] LABS: Actual Bicarbonate (HCO3a) 27.8 mEq/L (22-28); Analyzer IN Cardio OR; Base Excess (BEa) 2.8 mEq/L (-2.0 to +3.0); Calcium, Ionized (arterial) 1.04 mmol/L (1.12-1.30); Carboxyhemoglobin (COHb) 1.4 gm% (0.0-3.0); Hemoglobin (Hb) 6.4 g/dL (12.0-16.0); Potassium - ABG Lab 4.65 mmol/L (3.70-5.30); pH, Arterial 7.41 (7.35-7.45)
[2021-03-27 11:21] LABS: Actual Bicarbonate (HCO3a) 25.1 mEq/L (22-28); Analyzer IN Cardio OR; Base Excess (BEa) 1.1 mEq/L (-2.0 to +3.0); CO2 Tension 37.2 mmHg (35.0-45.0); Calcium, Ionized (arterial) 1.23 mmol/L (1.12-1.30); Carboxyhemoglobin (COHb) 1.1 gm% (0.0-3.0); Hemoglobin (Hb) 8.2 g/dL (12.0-16.0); O2 Tension (PaO2), arterial 267.8 mmHg (> 80.0); Potassium - ABG Lab 4.67 mmol/L (3.70-5.30); pH, Arterial 7.45 (7.35-7.45)
[2021-03-27 11:22] LABS: Actual Bicarbonate (HCO3a) 23.9 mEq/L (22-28); Analyzer IN Cardio OR; Base Excess (BEa) 0.8 mEq/L (-2.0 to +3.0); CO2 Tension 31.4 mmHg (35.0-45.0); Calcium, Ionized (arterial) 1.11 mmol/L (1.12-1.30); Carboxyhemoglobin (COHb) 1.1 gm% (0.0-3.0); O2 Tension (PaO2), arterial 417.7 mmHg (> 80.0); Potassium - ABG Lab 4.13 mmol/L (3.70-5.30); Puncture Site Arterial Line
[2021-03-27 11:22] LABS: Actual Bicarbonate (HCO3a) 26.6 mEq/L (22-28); Analyzer IN Cardio OR; Base Excess (BEa) 2.6 mEq/L (-2.0 to +3.0); CO2 Tension 37.9 mmHg (35.0-45.0); Calcium, Ionized (arterial) 1.11 mmol/L (1.12-1.30); Hemoglobin (Hb) 6.4 g/dL (12.0-16.0); O2 Tension (PaO2), arterial 434.6 mmHg (> 80.0); pH, Arterial 7.46 (7.35-7.45)
[2021-03-27 11:23] LABS: Puncture Site Arterial Line
[2021-03-27 11:23] LABS: Puncture Site Arterial Line
[2021-03-27 11:24] LABS: Puncture Site Arterial Line
[2021-03-27 11:24] LABS: Puncture Site Arterial Line
== END 2021-03-26 15:50 | disposition home or self-care (01) | DRG 234 ==
LOC: CCL 06:51 → 2NO 11:04 → CCU 03-21 07:27 → 2NO 03-23 19:32
PROVIDERS: ADMIT Internal Medicine Cardiovascular Disease; ATTEND Internal Medicine Cardiovascular Disease
PROC: 4A023N7 Measurement of Cardiac Sampling and Pressure, Left Heart, Percutaneous Approach (ICD-10-PCS; 2021-03-19)
PROC: B2111ZZ Fluoroscopy of Multiple Coronary Arteries using Low Osmolar Contrast (ICD-10-PCS; 2021-03-19)
PROC: B2181ZZ Fluoroscopy of Left Internal Mammary Bypass Graft using Low Osmolar Contrast (ICD-10-PCS; 2021-03-19)
PROC: B2151ZZ Fluoroscopy of Left Heart using Low Osmolar Contrast (ICD-10-PCS; 2021-03-19)
PROC: 4A033BC Measurement of Arterial Pressure, Coronary, Percutaneous Approach (ICD-10-PCS; 2021-03-19)
PROC: 02100Z9 Bypass Coronary Artery, One Artery from Left Internal Mammary, Open Approach (ICD-10-PCS; principal; 2021-03-21)
PROC: 021209W Bypass Coronary Artery, Three Arteries from Aorta with Autologous Venous Tissue, Open Approach (ICD-10-PCS; 2021-03-21)
PROC: 06BP4ZZ Excision of Right Saphenous Vein, Percutaneous Endoscopic Approach (ICD-10-PCS; 2021-03-21)
PROC: 5A1221Z Performance of Cardiac Output, Continuous (ICD-10-PCS; 2021-03-21)
DX: I25.110 Atherosclerotic heart disease of native coronary artery with unstable angina pectoris (principal); I10 Essential (primary) hypertension; E78.5 Hyperlipidemia, unspecified; E11.9 Type 2 diabetes mellitus without complications; G89.29 Other chronic pain; E66.01 Morbid (severe) obesity due to excess calories; Z68.41 Body mass index [BMI] 40.0-44.9, adult; Z88.1 Allergy status to other antibiotic agents; Z88.5 Allergy status to narcotic agent; Z88.0 Allergy status to penicillin; Z90.49 Acquired absence of other specified parts of digestive tract; Z90.710 Acquired absence of both cervix and uterus; Z79.84 Long term (current) use of oral hypoglycemic drugs; Z79.82 Long term (current) use of aspirin; Z79.1 Long term (current) use of non-steroidal anti-inflammatories (NSAID); Z79.899 Other long term (current) drug therapy; Z87.891 Personal history of nicotine dependence
CPT/HCPCS: 36415; 36416; 36430; 71045; 76942; 80048; 82805; 82947; 83036; 85025; 85060; 85610; 85730; 86850; 86900; 86901; 93005; 93010; 93458; 93798; 94002; 94150; 94640; 99152; 99153; J0171; J1100; J1642; J1644; J1815; J1885; J2001; J2150; J2250; J2405; J2440; J2704; J2720; J3010; J3370; J3475; J3480; J3490; J7620; P9016; P9045; Q9967; S0017; S0020; S0028

== ENCOUNTER 2021-06-04 19:03 | Observation (INO) | payer MEDICARE, MEDICAID, OTHER ==
[~2021-06-04 19:03] MED LIST: Iopamidol-370 76% 500 ML 1 ML ONE
[2021-06-04 19:56] LABS: #Eosinphils 0.2 thou/uL (0.0-0.7); #Lymphocytes 2.7 thou/uL (1.20-3.40); #Monocytes 0.3 thou/uL (0.11-0.59); #Neutrophils 4.1 thou/uL (1.40-6.50); %Basophils 0.4 % (0.0-1.0); %Eosinophils 2.3 % (0.0-10.0); %Lymphocytes 37.4 % (21.0-51.0); Hemoglobin 8.8 g/dL (12.0-16.0); Mean Corpuscular HGB CONC 30.9 g/dL (32.0-36.0); Mean Corpuscular Hemoglobin 22.3 pg (27.0-31.0); Mean Corpuscular Volume 72.1 fL (78.0-98.0); Mean Platelet Volume 7.4 fL (7.4-10.4); Platelet Count 248 thou/uL (130-400); RBC Distribution Width 20.9 % (11.5-14.5); Red Blood Cell (RBC) Count 3.94 mill/uL (4.20-5.40); White Blood Cell (WBC) Count 7.2 thou/uL (4.8-10.8)
[2021-06-04 20:10] LABS: ALT (SGPT) 11 U/L (8-55); AST (SGOT) 10 U/L (5-34); Albumin 3.9 g/dL (3.5-5.0); Alkaline Phosphatase 111 U/L (40-110); Anion Gap 11 mmol/L (10-20); BUN (Urea Nitrogen) 15 mg/dL (9.8-20.1); Bilirubin, Total 0.4 mg/dL (0.2-1.2); Calc. Creatinine Clearance 0 mL/min (70-130); Calcium 9.2 mg/dL (7.8-10.44); Carbon Dioxide 30 mmol/L (22-29); Chloride 101 mmol/L (98-107); Globulin 3.1 g/dL (2.4-3.5); Glucose 91 mg/dL (70-105); Sodium 138 mmol/L (136-145)
[2021-06-04 20:16] LABS: Anisocytosis MODERATE=16-30 cells (100X) (0-5/hpf); Hypochromia SLIGHT = 6-15 cells (100X) (0-5/hpf); MDiff Complete? YES; Microcytosis SLIGHT = 6-15 cells (100X) (0-5/hpf); Platelet Morphology Comment Appears Adequate; Polychromasia SLIGHT = 2-3 cells (100X) (0-2/hpf); Target Cells MODERATE= 6-15 cells (100X) (0-1/hpf); Tear Drops SLIGHT = 2-5 cells (100X) (0-1/hpf)
[2021-06-04] MEDS ORDERED: Nitroglycerin 0.4 MG TAB 1 EACH ONE (21:34)
[2021-06-04] MEDS ORDERED: Acetaminophen 500 MG TAB ONE (21:34)
[2021-06-04] MEDS ORDERED: Aspirin Chewable 81 MG TAB ONE (23:00)
[2021-06-04] MEDS ORDERED: Carvedilol 25 MG TAB PO SCH (23:15)
[2021-06-05 00:05] LABS: Troponin I Less than 0.010 ng/mL (< 0.028)
[2021-06-05 00:49] LABS: Hemoglobin A1c 6.1 % (4.0-6.0)
[2021-06-05 01:01] LABS: Phosphorus 3.1 mg/dL (2.3-4.7)
[2021-06-05 01:03] LABS: Cardiac Risk 4.1 (Less than 4.5); Cholesterol 163 mg/dl (< 200 Desired); HDL Cholesterol 40 mg/dL (>60 Neg Risk); LDL Cholesterol, Calculated 106 mg/dL; Magnesium 1.8 mg/dL (1.6-2.6); Triglycerides 83 mg/dL (Less than 150)
[2021-06-05 02:32] LABS: SARS-CoV-2 NAA Rapid Test Not Detected (NotDetected)
[2021-06-05 03:18] VITALS: BMI 40.6
[2021-06-05 03:36] LABS: Troponin I Less than 0.010 ng/mL (< 0.028)
[2021-06-05 03:47] LABS: ALT (SGPT) 11 U/L (8-55); AST (SGOT) 9 U/L (5-34); Albumin 3.6 g/dL (3.5-5.0); Alkaline Phosphatase 101 U/L (40-110); Anion Gap 12 mmol/L (10-20); BUN (Urea Nitrogen) 12 mg/dL (9.8-20.1); Bilirubin, Total 0.4 mg/dL (0.2-1.2); Calc. Creatinine Clearance 128 mL/min (70-130); Calcium 9.2 mg/dL (7.8-10.44); Carbon Dioxide 28 mmol/L (22-29); Chloride 102 mmol/L (98-107); Globulin 3.2 g/dL (2.4-3.5); Glucose 97 mg/dL (70-105); Potassium 3.7 mmol/L (3.5-5.1); Protein, Total 6.8 g/dL (6.0-8.3); Sodium 138 mmol/L (136-145)
[2021-06-05 04:07] LABS: #Eosinphils 0.1 thou/uL (0.0-0.7); #Lymphocytes 2.7 thou/uL (1.20-3.40); #Monocytes 0.4 thou/uL (0.11-0.59); #Neutrophils 3.4 thou/uL (1.40-6.50); %Basophils 0.5 % (0.0-1.0); %Eosinophils 1.5 % (0.0-10.0); %Lymphocytes 40.4 % (21.0-51.0); %Monocytes 5.7 % (0.0-10.0); Hemoglobin 8.6 g/dL (12.0-16.0); Mean Corpuscular HGB CONC 30.6 g/dL (32.0-36.0); Mean Corpuscular Hemoglobin 21.9 pg (27.0-31.0); Mean Corpuscular Volume 71.4 fL (78.0-98.0); Mean Platelet Volume 6.7 fL (7.4-10.4); Platelet Count 252 thou/uL (130-400); RBC Distribution Width 20.3 % (11.5-14.5); Red Blood Cell (RBC) Count 3.92 mill/uL (4.20-5.40); White Blood Cell (WBC) Count 6.6 thou/uL (4.8-10.8)
[2021-06-05] MEDS ORDERED: Dextrose 50% Abboject 50 ML SYRINGE SLOW IVP PRN (04:33)
[2021-06-05] MEDS ORDERED: Dextrose 5% in Water 1,000 ML IV PRN (04:33)
[2021-06-05] MEDS ORDERED: HumaLOG 300 UNITS/3 ML VIAL SC PRN ×2 (04:33)
[2021-06-05] MEDS ORDERED: Cyclobenzaprine 10 MG TAB PO PRN (06:43)
[2021-06-05] MEDS ORDERED: Diclofenac Sodium 50 MG DR TAB PO SCH (06:45)
[2021-06-05 07:46] LABS: Iron 17 ug/dL (50-170); Iron Binding Capacity, Total 391 mcg/dL (265-497)
[2021-06-05] MEDS ORDERED: Aspirin 81 mg Enteric Coated Tablet PO SCH (09:00)
[2021-06-05] MEDS ORDERED: Meloxicam 7.5 MG TAB PO SCH (09:00)
[2021-06-05] MEDS ORDERED: Estradiol 1 MG TAB PO SCH (09:00)
[2021-06-05] MEDS ORDERED: Losartan 25 MG TAB PO SCH (09:00)
[2021-06-05] MEDS: Ipratropium Bromide 0.03% Nasal Inhaler 30 ml Bottle EA NARE SCH ×2 (10:53→22:13)
[2021-06-05] MEDS: Enoxaparin Sodium 40 MG/0.4 ML SYRINGE SC SCH (10:53)
[2021-06-05] MEDS: Azelastine 137 MCG/Spray 30 ML NS SCH (10:56)
[2021-06-05] MEDS: DULoxetine 60 MG CAP PO SCH (10:57)
[2021-06-05] MEDS: Aspirin Chewable 81 MG TAB PO SCH (10:57)
[2021-06-05] MEDS: Furosemide 20 MG TAB PO SCH (10:58)
[2021-06-05] MEDS: Ascorbic Acid 500 mg Chewable Tablet PO SCH (10:58)
[2021-06-05] MEDS: Calcium Carbonate 600 MG + Vit D TAB PO SCH (10:58)
[2021-06-05] MEDS: metFORMIN 500 MG TAB PO SCH (10:58)
[2021-06-05] MEDS: Gabapentin 300 MG CAP PO SCH ×3 (10:59→21:05)
[2021-06-05] MEDS: Carvedilol 25 MG TAB PO SCH ×2 (10:59→21:05)
[2021-06-05] MEDS: Multivit, Therapeutic 1 TAB PO SCH (11:00)
[2021-06-05] MEDS: Potassium Chloride 10 MEQ TAB PO SCH (11:01)
[2021-06-05] MEDS: valACYclovir 500 MG TAB PO SCH (11:04)
[2021-06-05] MEDS: Acetaminophen 325 MG TAB PO PRN ×2 (11:11→21:04)
[2021-06-05] MEDS ORDERED: Iron, Sodium Ferric Gluconate 250 MG in Sodium Chloride 0.9% 250 ML 250 ML IVPB SCH (16:30)
[2021-06-05] MEDS: Ketorolac Tromethamine 30 MG/ML VIAL IVP SCH (16:54)
[2021-06-05] MEDS ORDERED: Mometasone Furoate 30 PUFF 220 MCG INH SCH (18:30)
[2021-06-05] MEDS: Mometasone 200 MCG/Formoterol 5 MCG 120 PUFF INHALER INH SCH (19:33)
[2021-06-05] MEDS ORDERED: Atorvastatin Calcium 40 MG TAB PO SCH (21:00)
[2021-06-06] MEDS: Ketorolac Tromethamine 30 MG/ML VIAL IVP SCH ×2 (00:18→09:32)
[2021-06-06] MEDS: Mometasone 200 MCG/Formoterol 5 MCG 120 PUFF INHALER INH SCH (06:41)
[2021-06-06] MEDS ORDERED: Losartan 25 MG TAB PO SCH (09:00)
[2021-06-06] MEDS: Azelastine 137 MCG/Spray 30 ML NS SCH (09:16)
[2021-06-06] MEDS: Ipratropium Bromide 0.03% Nasal Inhaler 30 ml Bottle EA NARE SCH (09:16)
[2021-06-06] MEDS: Gabapentin 300 MG CAP PO SCH (09:16)
[2021-06-06] MEDS: DULoxetine 60 MG CAP PO SCH (09:18)
[2021-06-06] MEDS: Carvedilol 25 MG TAB PO SCH (09:19)
[2021-06-06] MEDS: Furosemide 20 MG TAB PO SCH (09:19)
[2021-06-06] MEDS: Enoxaparin Sodium 40 MG/0.4 ML SYRINGE SC SCH (09:19)
[2021-06-06] MEDS: Aspirin Chewable 81 MG TAB PO SCH (09:19)
[2021-06-06] MEDS: Calcium Carbonate 600 MG + Vit D TAB PO SCH (09:19)
[2021-06-06] MEDS: Ascorbic Acid 500 mg Chewable Tablet PO SCH (09:19)
[2021-06-06] MEDS: metFORMIN 500 MG TAB PO SCH (09:19)
[2021-06-06] MEDS: Multivit, Therapeutic 1 TAB PO SCH (09:19)
[2021-06-06] MEDS: Potassium Chloride 10 MEQ TAB PO SCH (09:19)
[2021-06-06] MEDS: valACYclovir 500 MG TAB PO SCH (09:20)
[2021-06-06 11:57] VITALS: BP 137/79; TEMP 98.6
== END 2021-06-06 13:24 | disposition home or self-care (01) ==
LOC: ERS 19:03 → ERHOLD 23:07 → 3SE 06-05 01:54
PROVIDERS: ADMIT Family Medicine; ATTEND Family Medicine
DX: I16.1 Hypertensive emergency (principal); R07.89 Other chest pain; I11.0 Hypertensive heart disease with heart failure; I50.9 Heart failure, unspecified; K21.9 Gastro-esophageal reflux disease without esophagitis; G89.29 Other chronic pain; M54.5 Low back pain; J45.909 Unspecified asthma, uncomplicated; E78.5 Hyperlipidemia, unspecified; R73.03 Prediabetes; D50.9 Iron deficiency anemia, unspecified; B00.9 Herpesviral infection, unspecified; E66.9 Obesity, unspecified; Z68.41 Body mass index [BMI] 40.0-44.9, adult; Z87.891 Personal history of nicotine dependence; Z79.82 Long term (current) use of aspirin; Z79.84 Long term (current) use of oral hypoglycemic drugs; Z79.890 Hormone replacement therapy; Z79.899 Other long term (current) drug therapy; Z88.0 Allergy status to penicillin; Z88.1 Allergy status to other antibiotic agents; Z88.5 Allergy status to narcotic agent; Z95.1 Presence of aortocoronary bypass graft; Z20.822 Contact with and (suspected) exposure to COVID-19
CPT/HCPCS: 71045; 71275; 80053; 80061; 82728; 82962 ×2; 83036; 83540; 83550; 83735; 83880; 84100; 84484 ×3; 85025; 85379; 93005; 94640 ×2; 99285; U0002; 36415; 36416; 84443; 96365; 96366; 96372; 96375; 96376; G0378; J1650; J1885; J2916; J7050; Q9967

== ENCOUNTER 2021-07-22 11:02 | Outpatient (CLI) | payer MEDICAID, MEDICARE | END 2021-07-22 11:03 | disposition home or self-care (01) | LOC: BICMAMMO 11:02 | PROVIDERS: ATTEND Student in an Organized Health Care Education/Training Program | DX: Z12.31 Encounter for screening mammogram for malignant neoplasm of breast (principal) | CPT/HCPCS: 77063; 77067 ==

== ENCOUNTER 2021-08-30 13:53 | Emergency (ER) | payer MEDICARE, MEDICAID ==
[2021-08-30 14:45] LABS: #Basophils 0.1 thou/uL (0.0-0.2); #Eosinphils 0.1 thou/uL (0.0-0.7); #Lymphocytes 1.9 thou/uL (1.20-3.40); #Monocytes 0.3 thou/uL (0.11-0.59); #Neutrophils 2.1 thou/uL (1.40-6.50); %Basophils 1.6 % (0.0-1.0); %Eosinophils 2.8 % (0.0-10.0); %Lymphocytes 41.9 % (21.0-51.0); %Monocytes 6.6 % (0.0-10.0); %Neutrophils 47.1 % (42.0-75.0); Hemoglobin 11.6 g/dL (12.0-16.0); Mean Corpuscular HGB CONC 32.2 g/dL (32.0-36.0); Mean Corpuscular Hemoglobin 27.6 pg (27.0-31.0); Mean Corpuscular Volume 85.7 fL (78.0-98.0); Mean Platelet Volume 10.9 fL (7.4-10.4); Platelet Count 186 thou/uL (130-400); RBC Distribution Width 21.3 % (11.5-14.5); Red Blood Cell (RBC) Count 4.21 mill/uL (4.20-5.40); White Blood Cell (WBC) Count 4.5 thou/uL (4.8-10.8)
[2021-08-30 15:07] LABS: ALT (SGPT) 12 U/L (8-55); AST (SGOT) 10 U/L (5-34); Albumin 3.8 g/dL (3.4-4.8); Alkaline Phosphatase 86 U/L (40-110); Anion Gap 11 mmol/L (10-20); BUN (Urea Nitrogen) 20 mg/dL (9.8-20.1); Bilirubin, Total 0.4 mg/dL (0.2-1.2); CK (CPK) 83 U/L (29-168); Calc. Creatinine Clearance 0 mL/min (70-130); Calcium 9.2 mg/dL (7.8-10.44); Carbon Dioxide 28 mmol/L (23-31); Chloride 103 mmol/L (98-107); Globulin 2.7 g/dL (2.4-3.5); Glucose 112 mg/dL (80-115); Potassium 4.4 mmol/L (3.5-5.1); Protein, Total 6.5 g/dL (5.8-8.1); Sodium 138 mmol/L (136-145)
== END 2021-08-30 16:05 | disposition home or self-care (01) ==
LOC: ERS 13:53
DX: S46.212A Strain of muscle, fascia and tendon of other parts of biceps, left arm, initial encounter (principal); R07.89 Other chest pain; I49.3 Ventricular premature depolarization; I49.1 Atrial premature depolarization; I51.7 Cardiomegaly; I10 Essential (primary) hypertension; E78.5 Hyperlipidemia, unspecified; J45.909 Unspecified asthma, uncomplicated; W07.XXXA Fall from chair, initial encounter; Z87.891 Personal history of nicotine dependence; Z79.84 Long term (current) use of oral hypoglycemic drugs; Z79.899 Other long term (current) drug therapy
CPT/HCPCS: 71045; 80053; 82550; 84484; 85025; 93005

== ENCOUNTER 2023-01-18 11:29 | Outpatient (CLI) | payer OTHER, MEDICAID | END 2023-01-18 11:30 | disposition home or self-care (01) | LOC: BICMAMMO 11:29 | PROVIDERS: ATTEND Student in an Organized Health Care Education/Training Program | DX: Z12.31 Encounter for screening mammogram for malignant neoplasm of breast (principal) | CPT/HCPCS: 77063; 77067 ==

== ENCOUNTER 2025-06-11 11:40 | Emergency (ER) | payer OTHER, MEDICAID ==
[2025-06-11] MEDS ORDERED: Ketorolac Tromethamine 30 MG (1 mL) VIAL ONE (12:38)
[2025-06-11] MEDS ORDERED: Acetaminophen 500 MG TAB ONE (13:03)
== END 2025-06-11 15:32 | disposition home or self-care (01) ==
LOC: ERS 11:40
DX: M79.604 Pain in right leg (principal); M54.50 Low back pain, unspecified; E78.5 Hyperlipidemia, unspecified; I10 Essential (primary) hypertension; Z79.899 Other long term (current) drug therapy; Z87.891 Personal history of nicotine dependence; Z79.82 Long term (current) use of aspirin; Z95.5 Presence of coronary angioplasty implant and graft
CPT/HCPCS: 96374; J1885